=== PATIENT | female | born 1975 | race Caucasian/White ===

== ENCOUNTER 2021-11-19 22:45 | Emergency (ER) | payer MEDICAID, SELFPAY ==
--- NOTE | ~2021-11-19 | XR_ITS ---
EXAMINATION: XR CHEST CLINICAL INFORMATION: Chest pain COMPARISON: None TECHNIQUE: Frontal view of the chest was obtained. FINDINGS: No significant abnormality is noted involving the heart, lungs, mediastinum, bony thorax or soft tissues. Surgical clips over the right axilla and chest. XR/XR chest 1V IMPRESSION: Unremarkable examination.
--- NOTE | 2021-11-19 22:49 | ECG_ITS ---
Test Reason : CP Blood Pressure : / mmHG Vent. Rate : 102 BPM Atrial Rate : 102 BPM P-R Int : 154 ms QRS Dur : 086 ms QT Int : 358 ms P-R-T Axes : 036 006 026 degrees QTc Int : 466 ms Sinus tachycardia Possible Inferior infarct , age undetermined Cannot rule out Anterior infarct , age undetermined Abnormal ECG No previous ECGs available Referred By: Adrien Emery Electronically Signed By:ROHIT LITTLE
--- NOTE | 2021-11-19 22:56 | ED_ITS ---
HPI - Chest Pain General Chief Complaint: Chest Pain Stated Complaint: cp/hyperglycemia Time Seen by Provider: 11/19/21 22:48 Source: patient and EMS Mode of arrival: EMS Limitations: no limitations History of Present Illness HPI narrative: 46-year-old female past medical history significant for GERD, diabetes pres enting to the emergency department from [facility] where she is currently staying for suicidal ideation presenting with complaints of palpitations, shortness of breath and high sugars. According to EMS patient's sugar at [facility] was 300 after 30 units of insulin, her sugar in the ambulance was 370. Patient tells me that she feels like her heart is beating fast and she is feeling short of breath with exertion. She tells me this started today. He tells me her sugars are at times and controlled, she denies blurred vision, nausea, vomiting, abdominal pain, weakness, dizziness, vision changes, changes with urination. Patient tells me she has never had DKA. Patient tells me she has no personal history of cardiac disease. She does not know her family history she tells me that she was adopted. MD complaint: chest pain Timing of current episode: episodic Prior episodes: No Onset: during exertion Pain location: substernal Pain radiation: none Severity: moderate Quality: heaviness Relieving factors: nothing Exacerbating factors: movement Associated symptoms: dyspnea Treatment prior to arrival: none Related Data Allergies Allergy/AdvReac Type Severity Reaction Status Date / Time bacitracin Allergy Unknown Verified 11/19/21 23:19 bee pollen [bee stings] Allergy Unknown Verified 11/19/21 23:19 chlorpromazine Allergy Unknown Verified 11/19/21 23:19 [From Thorazine] dulaglutide Allergy Unknown Verified 11/19/21 23:19 empagliflozin [From Glyxambi] Allergy Unknown Verified 11/19/21 23:19 haloperidol [From Haldol] Allergy Unknown Verified 11/19/21 23:19 linagliptin [From Glyxambi] Allergy Unknown Verified 11/19/21 23:19 risperidone Allergy Unknown Verified 11/19/21 23:19 sulfamethoxazole Allergy Unknown Verified 11/19/21 23:19 [From Bactrim] trimethoprim [From Bactrim] Allergy Unknown Verified 11/19/21 23:19 Review of Systems Review of Systems: Constitutional : No Weight loss, No Fever, No Chills, No Fatigue, No Malaise ENT/Mouth : No sore throat, No Rhinorrhea Eyes: No Eye Pain, No Swelling, No Redness Cardiovascular : + Chest Pain, + SOB, + Dyspnea on Exertion, No Orthopnea, No Edema, +o Palpitations Respiratory : No Cough, No Sputum, No Wheezing Gastrointestinal : No Nausea, No Vomiting, No Diarrhea, No Constipation, No abdominal Pain, No Hematochezia, No Melena Genitourinary : No Dysuria, No Urinary Frequency, No Hematuria, Musculoskeletal : No joint pain, No Myalgias, No Joint Swelling Skin : No Skin Lesions, No rash Neuro : No Weakness, No Numbness, No Dizziness, No Headache Psych : No Anxiety/Panic, No Depression All other systems reviewed and are negative Yes all other systems are reviewed and are negative [facility] Past Medical History Attestation statement: The following information was validated with the patient. Source: old records reviewed and nursing notes reviewed Social History Social History Advance Directives: No Patient : No Physical Exam Vital Signs: Vital Signs: Last Vital Signs Pulse 101 H 11/20/21 00:15 Resp 20 11/20/21 00:15 BP 130/82 11/20/21 00:15 Pulse Ox 99 11/20/21 00:15 BMI result Body Mass Index 41.1 Vital signs stable Appearance: Alert.? Oriented X3.? No acute distress.? Head: Normocephalic, atraumatic, no step-offs or deformities Eyes: Pupils equal, round and reactive to light.? ENT: Pharynx normal.? Neck: Normal inspection.? Neck supple.? CVS: Rapid rate, normal rhythm likely sinus tachycardia. Pulses normal.? Respiratory: No respiratory distress.? Breath sounds normal.? Abdomen: Soft and nontender.? Skin: Skin warm and dry.? Normal skin color.? Normal skin turgor.? Extremities: No lower extremity edema.? No calf ttp, negative brenda. 5/5 strength to bilateral upper and lower extremities Back: No midline tenderness, no C-spine tenderness, full range of motion, no CVA tenderness bilaterally Neuro: Oriented X 3.? No motor deficit.? No sensory deficit. CN 2-12 intact Course Reevaluation(s) Reevaluation #1: Patient noted to have a slight leukocytosis, normocytic anemia, no acute electrolyte abnormalities requiring intervention. She is noted to have a sugar of 355 however she just got insulin prior to her arrival, will give fluids and recheck patient's point of care. Patient's urine is clean. Acetone negative, VBG within normal limits, unlikely that this is DKA. Troponin negative, EKG nonischemic unlikely ACS. BNP within normal limits chest x-ray with no acute findings unlikely CHF,pna. Low suspicion for PE as patient has no risk factors. COVID negative. Time: 00:13 Reevaluation #2: POC improved 224. Patient feeling better at this time, heart rate on the monitor between 90 and 100, saturating 98 to 99%on room air. At this time patient can return to ia are fisted. Workup negative ACS, unlikely that this is a PE. No signs of CHF, pneumonia. Patient is no longer having chest pain or shortness of breath. Comfortable with discharge back to [facility]. Time: 00:53 MDM - Chest Pain MDM Narrative Medical decision making narrative: 1760 46-year-old female past medical history GERD, diabetes presenting to the emergency department with uncontrolled sugars despite insulin, palpitations and shortness of breath on exertion x1 day. Coming from [facility] Physical examination significant for rapid rate regular rhythm likely sinus tachycardia, lungs clear, negative Brenda bilaterally, abdomen soft nontender nondistended. Neuro exam nonfocal. Negative brenda b/l Plan at this time is labs, imaging, urine, EKG, cardiac monitoring. Will rule out ACS, CHF, DKA History and physical examination not consistent with PE Perc scpre 1 due to tachcardia however patient nervous, and anxious. Medical Records Data Attestation: I reviewed the patient's medical records. Lab Data Attestation: I reviewed the patient's lab results. Result diagrams: 11/19/21 23:36 11/19/21 23:36 Labs: Lab Results 11/19/21 11/19/21 11/19/21 Range/Units 23:19 23:19 23:19 WBC (4.8-10.8) X10*3/uL RBC (4.20-5.50) X10*6/uL Hgb (12.0-16.0) g/dl Hct (37.0-47.0) % MCV (80.0-98.0) fL MCH (27.0-33.0) pg MCHC (31.0-35.0) g/dl RDW (11.0-16.0) % Plt Count (160-400) X10*3/uL MPV (9.4-12.3) fL Immature Gran % (Auto) (0.0-0.4) % Neut % (Auto) (45-73) % Lymph % (Auto) (20-40) % Pierce % (Auto) (2-11) % Eos % (Auto) (0-4) % Baso % (Auto) (0-2) % Lymph # (Auto) (1.2-4.9) X10*3/uL Pierce # (Auto) (0.1-1.2) X10*3/uL Eos # (Auto) (0.0-0.4) X10*3/uL Baso # (Auto) (0.0-0.2) X10*3/uL Abs Immat Gran (auto) (0.00-0.03) X10*3/uL Absolute Neuts (auto) (2.0-8.3) x10*3/uL Absolute Nucleated RBC (0.0-0.012) X10*3/uL Nucleated RBC % (auto) (0.0-0.2) /100WBC VBG pH (7.32-7.43) VBG pCO2 mmHg VBG pO2 mmHg VBG HCO3 (22-26) mmol/L VBG O2 Saturation % VBG Base Excess mmol/L Sodium (135-145) mmol/L Potassium (3.3-5.1) mmol/L Chloride (96-108) mmol/L Carbon Dioxide (22-29) mmol/L Anion Gap (12-20) BUN (9-16) mg/dL Creatinine (0.5-1.4) mg/dL Estim Creat Clear Calc Estimated GFR Random Glucose (60-115) mg/dL Calcium (8.4-10.2) mg/dL Magnesium (1.6-2.6) mg/dL Total Bilirubin (0.0-1.0) mg/dL AST (5-31) U/L ALT (0-31) U/L Alkaline Phosphatase (39-117) U/L Troponin I High Sens (<3.5-17.0) ng/L B-Natriuretic Peptide (<100) pg/mL Total Protein (6.5-8.0) g/dL Albumin (3.5-5.0) g/dL Urine Color YELLOW Urine Appearance CLEAR Urine pH 6.0 (5.0-8.0) Ur Specific [place] <= 1.005 (1.005-1.025) Urine Protein NEG (NEG-TRACE) MG/DL Urine Glucose (UA) >=1000 H (NEG) MG/DL Urine Ketones NEG (NEG) MG/DL Urine Blood NEG (NEG) Urine Nitrite NEG (NEG) Ur Leukocyte Esterase NEG (NEG) Urine RBC 1-4 (0) /HPF Urine WBC 1-4 (0-4) /HPF Ur Squamous Epith Cells 1+ /LPF Urine Bacteria 1+ /LPF Urine Fentanyl Screen Not Detected (Not Detect) Ur Barbiturates Screen Not Detected (Not Detect) Ur Phencyclidine Scrn Not Detected (Not Detect) Ur Amphetamines Screen Not Detected (Not Detect) U Benzodiazepines Scrn Not Detected (Not Detect) Urine Cocaine Screen Not Detected (Not Detect) U Marijuana (THC) Screen Not Detected (Not Detect) Acetone, Qual (Negative) COVID-19 (LING) Negative (Negative) COVID-19 Clin Com See Note 11/19/21 11/19/21 11/19/21 Range/Units 23:36 23:36 23:36 WBC 11.7 H (4.8-10.8) X10*3/uL RBC 4.09 L (4.20-5.50) X10*6/uL Hgb 10.1 L (12.0-16.0) g/dl Hct 32.7 L (37.0-47.0) % MCV 80.0 (80.0-98.0) fL MCH 24.7 L (27.0-33.0) pg MCHC 30.9 L (31.0-35.0) g/dl RDW 17.8 H (11.0-16.0) % Plt Count 335 (160-400) X10*3/uL MPV 10.0 (9.4-12.3) fL Immature Gran % (Auto) 1.9 H (0.0-0.4) % Neut % (Auto) 63.5 (45-73) % Lymph % (Auto) 24.7 (20-40) % Pierce % (Auto) 6.1 (2-11) % Eos % (Auto) 3.2 (0-4) % Baso % (Auto) 0.6 (0-2) % Lymph # (Auto) 2.9 (1.2-4.9) X10*3/uL Pierce # (Auto) 0.7 (0.1-1.2) X10*3/uL Eos # (Auto) 0.4 (0.0-0.4) X10*3/uL Baso # (Auto) 0.1 (0.0-0.2) X10*3/uL Abs Immat Gran (auto) 0.22 H (0.00-0.03) X10*3/uL Absolute Neuts (auto) 7.4 (2.0-8.3) x10*3/uL Absolute Nucleated RBC 0.000 (0.0-0.012) X10*3/uL Nucleated RBC % (auto) 0.0 (0.0-0.2) /100WBC VBG pH (7.32-7.43) VBG pCO2 mmHg VBG pO2 mmHg VBG HCO3 (22-26) mmol/L VBG O2 Saturation % VBG Base Excess mmol/L Sodium 134 L (135-145) mmol/L Potassium 4.3 (3.3-5.1) mmol/L Chloride 103 (96-108) mmol/L Carbon Dioxide 20 L (22-29) mmol/L Anion Gap 15 (12-20) BUN 8 L (9-16) mg/dL Creatinine 1.00 (0.5-1.4) mg/dL Estim Creat Clear Calc 84.7 Estimated GFR 60 Random Glucose 355 H* (60-115) mg/dL Calcium 9.4 (8.4-10.2) mg/dL Magnesium 1.5 L (1.6-2.6) mg/dL Total Bilirubin 0.2 (0.0-1.0) mg/dL AST 19 (5-31) U/L ALT 19 (0-31) U/L Alkaline Phosphatase 131 H (39-117) U/L Troponin I High Sens < 3.5 (<3.5-17.0) ng/L B-Natriuretic Peptide (<100) pg/mL Total Protein 7.5 (6.5-8.0) g/dL Albumin 3.7 (3.5-5.0) g/dL Urine Color Urine Appearance Urine pH (5.0-8.0) Ur Specific [place] (1.005-1.025) Urine Protein (NEG-TRACE) MG/DL Urine Glucose (UA) (NEG) MG/DL Urine Ketones (NEG) MG/DL Urine Blood (NEG) Urine Nitrite (NEG) Ur Leukocyte Esterase (NEG) Urine RBC (0) /HPF Urine WBC (0-4) /HPF Ur Squamous Epith Cells /LPF Urine Bacteria /LPF Urine Fentanyl Screen (Not Detect) Ur Barbiturates Screen (Not Detect) Ur Phencyclidine Scrn (Not Detect) Ur Amphetamines Screen (Not Detect) U Benzodiazepines Scrn (Not Detect) Urine Cocaine Screen (Not Detect) U Marijuana (THC) Screen (Not Detect) Acetone, Qual (Negative) COVID-19 (LING) (Negative) COVID-19 Clin Com 11/19/21 11/19/21 11/19/21 Range/Units 23:36 23:36 23:39 WBC (4.8-10.8) X10*3/uL RBC (4.20-5.50) X10*6/uL Hgb (12.0-16.0) g/dl Hct (37.0-47.0) % MCV (80.0-98.0) fL MCH (27.0-33.0) pg MCHC (31.0-35.0) g/dl RDW (11.0-16.0) % Plt Count (160-400) X10*3/uL MPV (9.4-12.3) fL Immature Gran % (Auto) (0.0-0.4) % Neut % (Auto) (45-73) % Lymph % (Auto) (20-40) % Pierce % (Auto) (2-11) % Eos % (Auto) (0-4) % Baso % (Auto) (0-2) % Lymph # (Auto) (1.2-4.9) X10*3/uL Pierce # (Auto) (0.1-1.2) X10*3/uL Eos # (Auto) (0.0-0.4) X10*3/uL Baso # (Auto) (0.0-0.2) X10*3/uL Abs Immat Gran (auto) (0.00-0.03) X10*3/uL Absolute Neuts (auto) (2.0-8.3) x10*3/uL Absolute Nucleated RBC (0.0-0.012) X10*3/uL Nucleated RBC % (auto) (0.0-0.2) /100WBC VBG pH 7.41 (7.32-7.43) VBG pCO2 26 mmHg VBG pO2 90 mmHg VBG HCO3 17 L (22-26) mmol/L VBG O2 Saturation 97.0 % VBG Base Excess -5.5 mmol/L Sodium (135-145) mmol/L Potassium (3.3-5.1) mmol/L Chloride (96-108) mmol/L Carbon Dioxide (22-29) mmol/L Anion Gap (12-20) BUN (9-16) mg/dL Creatinine (0.5-1.4) mg/dL Estim Creat Clear Calc Estimated GFR Random Glucose (60-115) mg/dL Calcium (8.4-10.2) mg/dL Magnesium (1.6-2.6) mg/dL Total Bilirubin (0.0-1.0) mg/dL AST (5-31) U/L ALT (0-31) U/L Alkaline Phosphatase (39-117) U/L Troponin I High Sens (<3.5-17.0) ng/L B-Natriuretic Peptide < 10 (<100) pg/mL Total Protein (6.5-8.0) g/dL Albumin (3.5-5.0) g/dL Urine Color Urine Appearance Urine pH (5.0-8.0) Ur Specific [place] (1.005-1.025) Urine Protein (NEG-TRACE) MG/DL Urine Glucose (UA) (NEG) MG/DL Urine Ketones (NEG) MG/DL Urine Blood (NEG) Urine Nitrite (NEG) Ur Leukocyte Esterase (NEG) Urine RBC (0) /HPF Urine WBC (0-4) /HPF Ur Squamous Epith Cells /LPF Urine Bacteria /LPF Urine Fentanyl Screen (Not Detect) Ur Barbiturates Screen (Not Detect) Ur Phencyclidine Scrn (Not Detect) Ur Amphetamines Screen (Not Detect) U Benzodiazepines Scrn (Not Detect) Urine Cocaine Screen (Not Detect) U Marijuana (THC) Screen (Not Detect) Acetone, Qual Negative (Negative) COVID-19 (LING) (Negative) COVID-19 Clin Com ECG Data ECG #1: Attestation: I personally reviewed and interpreted this ECG as follows: ECG interpretation date: 11/19/21 ECG interpretation time: 23:19 Prior ECG tracings: not available for review Interpretation: Ventricular rate of 102, IL normal, QRS normal, QT/QTC normal. EKG shows sinus tachycardia, no ST elevations or inversions concerning for ischemia. No previous EKGs to compare with. Critical Care Time Critical Care Time Critical Care Time: No Discharge Plan Discharge Clinical Impression: Palpitations, Dyspnea on exertion, Chest discomfort Patient Disposition: Xfer Other Transfer Details: Transferred back to [facility]. Instructions: Chest Pain (ED), Dyspnea (ED), Heart Palpitations (ED) Additional Instructions: Take your medications as prescribed. Follow-up with your primary care provider this week. Return to the emergency department with new or worsening symptoms. Such as fevers, chills, chest pain, shortness of breath, nausea, vomiting, dizziness, headache, vision changes, lethargy In case of emergency call 911 Patient's EKG within normal limits to me in a normal limits unlikely that this is ACS. Chest x-ray normal, BNP within normal limits unlikely that this is CHF, no signs of pneumonia. Patient's labs were reassuring. Her sugar improved now to 24 after fluids. Patient should return with any new or worsening symptoms. Referrals: Physician,Unknown J [Primary Care Provider] - 2 days
[2021-11-19 22:58] VITALS: BP 140/70; PULSE 102; PULSE 104; RESP 16; O2SAT 100; BMI 41.1
[2021-11-19 23:28] LABS: Appearance Urine CLEAR; Color Urine YELLOW; Glucose Urine UA >=1000 MG/DL (NEG); Leukocyte Esterase Urine NEG (NEG); Nitrite Urine NEG (NEG); Specific Gravity - Urine <= 1.005 (1.005-1.025); Urine Blood NEG (NEG); Urine Ketones NEG (NEG); Urine Protein NEG (NEG-TRACE)
[2021-11-19 23:40] LABS: Bacteria Urine 1+ /LPF; Squamous Epithelial Cell Urine 1+ /LPF
[2021-11-19 23:41] LABS: MANUAL DIFF FLAG NO
[2021-11-19 23:42] LABS: Fentanyl, urine Not Detected (Not Detect)
[2021-11-19 23:43] LABS: Basophils Absolute Auto 0.1 X10*3/uL (0.0-0.2); Basophils Percent Auto 0.6 % (0-2); Eosinophils Absolute Auto 0.4 X10*3/uL (0.0-0.4); Eosinophils Percent Auto 3.2 % (0-4); Hematocrit 32.7 % (37.0-47.0); Hemoglobin 10.1 g/dl (12.0-16.0); Imm Gran Abs Auto 0.22 X10*3/uL (0.00-0.03); Imm Gran Pct Auto 1.9 % (0.0-0.4); Lymphocytes Absolute Auto 2.9 X10*3/uL (1.2-4.9); Lymphocytes Percent Auto 24.7 % (20-40); Mean Corpuscular HGB Conc 30.9 g/dl (31.0-35.0); Mean Corpuscular Hemoglobin 24.7 pg (27.0-33.0); Monocytes Absolute Auto 0.7 X10*3/uL (0.1-1.2); Monocytes Percent Auto 6.1 % (2-11); Neutrophils Absolute Auto 7.4 x10*3/uL (2.0-8.3); Neutrophils Percent Auto 63.5 % (45-73); Platelet Count 335 X10*3/uL (160-400); Red Blood Count 4.09 X10*6/uL (4.20-5.50); Red Cell Distribution Width 17.8 % (11.0-16.0); White Blood Count 11.7 X10*3/uL (4.8-10.8)
[2021-11-19 23:44] LABS: Amphetamine Screen Urine Not Detected (Not Detect); Barbiturates, Urine Not Detected (Not Detect); Benzodiazepines Screen Urine Not Detected (Not Detect); Cannabinoid Screen Urine Not Detected (Not Detect); Cocaine Screen Urine Not Detected (Not Detect); Phencyclidine Screen Urine Not Detected (Not Detect)
[2021-11-19 23:50] LABS: VBG Base Excess -5.5 mmol/L; VBG HCO3 17 mmol/L (22-26); VBG pCO2 26 mmHg; VBG pH 7.41 (7.32-7.43); VBG pO2 90 mmHg
[2021-11-19 23:52] LABS: Venous Blood Gas Refer to POC result
[2021-11-19 23:57] LABS: Acetone, serum QL Negative (Negative)
[2021-11-20 00:06] LABS: B Type Natriuretic Peptide < 10 pg/mL (<100); Troponin-I High Sensitivity < 3.5 ng/L (<3.5-17.0)
[2021-11-20 00:09] LABS: Alanine Aminotransferase 19 U/L (0-31); Albumin Level 3.7 g/dL (3.5-5.0); Alkaline Phosphatase 131 U/L (39-117); Anion Gap 15 (12-20); Aspartate Amino Transferase 19 U/L (5-31); Bilirubin Total 0.2 mg/dL (0.0-1.0); Blood Urea Nitrogen 8 mg/dL (9-16); Calcium 9.4 mg/dL (8.4-10.2); Carbon Dioxide 20 mmol/L (22-29); Chloride 103 mmol/L (96-108); Creatinine Clr Calc Pharmacy 84.7; Estimated Glomerular Filt Rate 60; Glucose Random 355 mg/dL (60-115); Magnesium 1.5 mg/dL (1.6-2.6); Potassium 4.3 mmol/L (3.3-5.1); Sodium 134 mmol/L (135-145); Total Protein 7.5 g/dL (6.5-8.0)
[2021-11-20 00:13] LABS: COVID-19 Test Negative (Negative)
[2021-11-20 00:15] VITALS: BP 130/82; PULSE 101; RESP 20; O2SAT 99
[2021-11-20] MEDS: 0.9 % Sodium Chloride 1,000 ML 999 ML IV (00:44)
--- NOTE | 2021-11-20 00:50 | PC.NURSE ---
POC 224
[2021-11-20 00:52] LABS: Glucose, Whole Blood 264 mg/dL (60-115)
[2021-11-20 01:01] LABS: Opiate Screen Urine Not Detected (Not Detect)
--- NOTE | 2021-11-20 01:04 | PC.NURSE ---
0105am - attempted to give nursing report to Meghna at the phone number supplied when patient was sent to ED. I called that number at this time and was directed to a voice mail. [phone]
--- NOTE | 2021-11-20 01:23 | PC.NURSE ---
[facility] nursing report on this returning patient. I called the provided phone number. There was no answer, just a voice mail (after I followed the appropriate prompts). I obtained the phone number for a nursing hospital supervisor from our care team - there is also no answer at that phone number. Will continue to attempt to make contact with a staff member of [facility].
--- NOTE | 2021-11-20 01:39 | PC.NURSE ---
staff from [facility] called ER at this time after we were able to make telephone contact with a billiee watchperson who seemingly notified the nursing staff on the inpatient unit to call us for a nursing report. I gave a nursing report on this returning patient.
[2021-11-20 03:26] VITALS: BP 135/85; PULSE 101; RESP 16; TEMP 36.7; O2SAT 100
[2021-11-20] MEDS: diphenhydrAMINE HCL 25 MG TABLET 50 MG PO (03:26)
--- NOTE | 2021-11-20 05:29 | PC.NURSE ---
I assumed nursing care of Lisa on her arrival to ED via EMS from [facility] for evaluation of chest pain. Pt has remained alert, oriented x 3, calm and cooperative. She makes eye contact with RN, has a normal affect. Pt admits to but states she is here for evaluation of chest pain. Pt has remained on a 1:1 since arrival to ED due to active suicidal ideations. She has taken PO fluids without difficulty. She has been D/C'd via EMS back to [facility] at this time.
== END 2021-11-20 05:38 | disposition home or self-care (01) ==
PROVIDERS: Physician Assistant; Emergency Provider Emergency Medicine Emergency Medical Services
DX: R00.2 Palpitations (principal); R06.00 Dyspnea, unspecified; R07.89 Other chest pain; R06.02 Shortness of breath; D64.9 Anemia, unspecified; E11.9 Type 2 diabetes mellitus without complications; Z20.822 Contact with and (suspected) exposure to COVID-19
CPT/HCPCS: 36415; 71045; 80053; 80307; 81001; 82009; 82803; 82947; 83735; 83880; 84484; 85025; 87635; 93005; 96360; 99284; Q0163